=== PATIENT | female | born 1965 | race Caucasian/White ===

== ENCOUNTER 2018-01-31 17:46 | Emergency (ER) | payer MEDICAID ==
[~2018-01-31] VITALS: Ht 144.8 cm; Wt 60.0 kg
[2018-01-31 19:56] LABS: CLARITY URINE CLOUDY (CLEAR); COLOR URINE YELLOW (YELLOW); KETONES URINE NEGATIVE (NEGATIVE); LEUKOCYTE ESTERASE URINE 1+ (NEGATIVE); NITRITE URINE NEGATIVE (NEGATIVE); OCCULT BLOOD URINE 3+ (NEGATIVE); PROTEIN URINE NEGATIVE (NEGATIVE); SPECIFIC GRAVITY URINE 1.023 (1.005-1.030); UROBILINOGEN URINE 0.2 E.U./dL (0.2-1.0)
[2018-02-01 00:34] LABS: BASOPHILS % 0.9 % (0.0-2.0); EOSINOPHILS % 1.8 % (0.0-5.0); HEMATOCRIT. 41.2 % (36.0-48.0); HEMOGLOBIN. 13.9 g/dL (12.0-16.0); LYMPHOCYTES % 28.4 % (20.0-50.0); MEAN CORPUSCULAR HEMOGLOBIN 28.9 pg (28.0-32.0); MEAN CORPUSCULAR VOLUME 85.9 fL (81.0-99.0); MEAN PLATELET VOLUME 7.9 fl (7.4-10.4); MONOCYTES % 7.8 % (2.0-8.0); NEUTROPHILS % 61.1 % (40.0-76.0); PLATELET 286 x1000/uL (130-400); RED CELL DISTRIBUTION WIDTH 14.1 % (11.6-14.6)
[2018-02-01 00:38] LABS: CHLORIDE 110 mEq/L (98-107)
[2018-02-01 00:42] LABS: INR 1.1
[2018-02-01 01:08] VITALS: BP 117/68
== END 2018-02-01 03:24 | disposition home or self-care (01) ==
LOC: ER 22:03
DX: R10.9 Unspecified abdominal pain (principal); R30.0 Dysuria; I10 Essential (primary) hypertension; F17.200 Nicotine dependence, unspecified, uncomplicated; F12.10 Cannabis abuse, uncomplicated; Z91.013 Allergy to seafood
CPT/HCPCS: 36415; 74176; 80053; 81003; 81025; 83690; 85025; 85610; 99285

== ENCOUNTER 2021-01-10 14:08 | Emergency (ER) | payer MEDICAID ==
[~2021-01-10] VITALS: Ht 157.5 cm; Wt 57.0 kg
[2021-01-10] MEDS ORDERED: ACETAMINOPHEN 325MG TABLET PO ONE (15:30)
[2021-01-10] MEDS ORDERED: IBUPROFEN 400MG TABLET PO ONE (15:30)
[2021-01-10 17:15] VITALS: BP 118/70
[2021-01-10] MEDS ORDERED: OXYMETAZOLINE HCL NASAL SPRAY 15ML BOTHNSTRLS SCH (21:00)
[2021-01-12] MEDS ORDERED: LORA10TA7 PO (00:51)
[2021-01-14] MEDS ORDERED: LEVO750T46 MT (11:37)
[2021-01-14] MEDS ORDERED: METF-414 MT (11:39)
== END 2021-01-10 19:12 | disposition home or self-care (01) ==
LOC: ER 14:08
DX: J06.9 Acute upper respiratory infection, unspecified (principal); I10 Essential (primary) hypertension
CPT/HCPCS: 87804; 99284

== ENCOUNTER 2021-07-29 12:17 | Emergency (ER) | payer MEDICAID ==
[~2021-07-29] VITALS: Ht 154.9 cm; Wt 73.0 kg
[~2021-07-29 12:17] MED LIST: LEVO750T46 MT; LORA10TA7 PO; METF-414 MT
[2021-07-29 14:28] LABS: BASOPHILS % 0.8 % (0.0-2.0); EOSINOPHILS % 0.9 % (0.0-5.0); HEMATOCRIT. 40.6 % (36.0-48.0); HEMOGLOBIN. 13.4 g/dL (12.0-16.0); LYMPHOCYTES % 24.9 % (20.0-50.0); MEAN CORPUSCULAR HEMOGLOBIN 28.7 pg (28.0-32.0); MEAN CORPUSCULAR VOLUME 86.7 fL (81.0-99.0); MEAN PLATELET VOLUME 8.8 fl (7.4-10.4); MONOCYTES % 10.9 % (2.0-8.0); NEUTROPHILS % 62.5 % (40.0-76.0); PLATELET 309 x1000/uL (130-400); RED BLOOD CELL COUNT 4.68 mill/uL (4.2-5.4); RED CELL DISTRIBUTION WIDTH 14.5 % (11.6-14.6)
[2021-07-29 14:35] LABS: CHLORIDE 105 mEq/L (98-107)
[2021-07-29 14:47] LABS: CLARITY URINE CLOUDY (CLEAR); COLOR URINE YELLOW (YELLOW); KETONES URINE NEGATIVE (NEGATIVE); LEUKOCYTE ESTERASE URINE 3+ (NEGATIVE); NITRITE URINE NEGATIVE (NEGATIVE); OCCULT BLOOD URINE 1+ (NEGATIVE); PROTEIN URINE 1+ (NEGATIVE); SPECIFIC GRAVITY URINE 1.018 (1.005-1.030)
[2021-07-29] MEDS ORDERED: CEFTRIAXONE 2 G PREMIX 50 ML IV ONE (15:30)
[2021-07-29] MEDS ORDERED: CEFTRIAXONE 2 G in DEXTROSE 5% WATER 50 ML IV NR (15:30)
[2021-07-29] MEDS ORDERED: ACETAMINOPHEN 325MG TABLET PO ONE (15:45)
[2021-07-29] MEDS ORDERED: KETOROLAC 15MG/ML VIAL IV ONE (15:45)
[2021-07-29] MEDS ORDERED: KETOROLAC 30MG/ML VIAL IV ONE (15:51)
[2021-07-29 16:00] VITALS: BP 114/65
[2021-07-29] MEDS ORDERED: SULF-299 MT (16:15)
== END 2021-07-29 16:30 | disposition home or self-care (01) ==
LOC: ER 12:17
DX: N10 Acute pyelonephritis (principal); N39.0 Urinary tract infection, site not specified; M54.50 Low back pain, unspecified; E11.9 Type 2 diabetes mellitus without complications; I10 Essential (primary) hypertension; F17.290 Nicotine dependence, other tobacco product, uncomplicated; Z87.440 Personal history of urinary (tract) infections; Z79.899 Other long term (current) drug therapy
CPT/HCPCS: 36415; 71045; 80053; 81003; 83690; 83880; 84484; 85025; 87077; 87086; 87186; 93005; 96374; 96375; 99285; J0696; J1885; J7060

== ENCOUNTER 2024-12-12 14:40 | Emergency (ER) | payer SELFPAY ==
[~2024-12-12] VITALS: Ht 149.9 cm; Wt 53.5 kg
[~2024-12-12 14:40] MED LIST changes: -LEVO750T46 MT; +LEVO750T68 MT; +SULF-299 MT
[2024-12-12 14:58] VITALS: BP 132/77; PULSE 89; RESP 16; TEMP 36.7; O2SAT 99
[2024-12-12 15:13] LABS: BASOPHILS % 0.7 % (0.0-2.0); HEMATOCRIT. 44.4 % (36.0-48.0); HEMOGLOBIN. 14.6 g/dL (12.0-16.0); LYMPHOCYTES % 36.6 % (20.0-50.0); MEAN CORPUSCULAR HEMOGLOBIN 28.6 pg (28.0-32.0); MEAN CORPUSCULAR VOLUME 86.6 fL (81.0-99.0); MEAN PLATELET VOLUME 8.1 fl (7.4-10.4); MONOCYTES % 7.3 % (2.0-8.0); NEUTROPHILS % 53.4 % (40.0-76.0); PLATELET 260 x1000/uL (130-400); RED BLOOD CELL COUNT 5.12 mill/uL (4.2-5.4); RED CELL DISTRIBUTION WIDTH 13.7 % (11.6-14.6); WHITE BLOOD COUNT 7.8 x1000/uL (4.5-11.0)
[2024-12-12 15:18] LABS: CARBON DIOXIDE 23 mEq/L (21-32); CHLORIDE 106 mEq/L (98-107); POTASSIUM 3.8 mEq/L (3.5-5.1); SODIUM 139 mEq/L (136-145)
[2024-12-12 15:19] LABS: CALCIUM 9.9 mg/dL (8.7-10.4)
[2024-12-12 15:23] LABS: CREATININE 0.6 mg/dL (0.6-1.0)
[2024-12-12 15:24] LABS: GLUCOSE 136 mg/dL (70-105); UREA NITROGEN BLOOD 7 mg/dL (9-23)
[2024-12-12 15:25] LABS: ALANINE AMINOTRANSFERASE 28 IU/L (10-49); ALBUMIN 4.3 g/dL (3.2-4.8); ASPARTATE AMINOTRANSFERASE 34 IU/L (<34)
[2024-12-12 15:26] LABS: BILIRUBIN DIRECT < 0.1 mg/dL (<=3.0); BILIRUBIN TOTAL 0.4 mg/dL (0.1-1.0); PROTEIN TOTAL 7.9 g/dL (6.0-8.3); TROPONIN I HIGH SENSITIVITY < 4 ng/L (3.0-34)
[2024-12-12 16:55] LABS: CLARITY URINE CLEAR (CLEAR); COLOR URINE YELLOW (YELLOW); GLUCOSE URINE NEGATIVE (NEGATIVE); KETONES URINE NEGATIVE (NEGATIVE); LEUKOCYTE ESTERASE URINE 2+ (NEGATIVE); NITRITE URINE NEGATIVE (NEGATIVE); OCCULT BLOOD URINE NEGATIVE (NEGATIVE); PROTEIN URINE NEGATIVE (NEGATIVE); SPECIFIC GRAVITY URINE 1.003 (1.005-1.030); UROBILINOGEN URINE 0.2 E.U./dL (0.2-1.0)
[2024-12-12] MEDS: ONDANSETRON 4MG ODT PO NR (17:07)
[2024-12-12] MEDS: MAGNESIUM/ALUMINUM HYDROXIDE/SIMETHICONE 30ML UDC PO NR (17:07)
[2024-12-12] MEDS: FAMOTIDINE 20MG TABLET PO NR (17:07)
[2024-12-12 17:21] LABS: RBC URINE NONE SEEN /hpf (0-2); SQUAMOUS EPITHELIAL CELL URINE FEW /lpf (RARE/1+)
[2024-12-12 17:22] LABS: BACTERIA URINE 1+
[2024-12-12] MEDS ORDERED: FAMO-135 MT (17:45)
[2024-12-12] MEDS ORDERED: CEPH500T MT (17:45)
== END 2024-12-12 17:53 | disposition home or self-care (01) ==
LOC: ER 14:40
DX: N39.0 Urinary tract infection, site not specified (principal); A08.4 Viral intestinal infection, unspecified; E11.9 Type 2 diabetes mellitus without complications; E78.00 Pure hypercholesterolemia, unspecified; I10 Essential (primary) hypertension; Z79.84 Long term (current) use of oral hypoglycemic drugs; Z87.440 Personal history of urinary (tract) infections
CPT/HCPCS: 99284; 80076; 80048; 81003; 83690; 85025; 84484; 36415; 93005; Q0162